=== PATIENT | male | born 1975 | race Caucasian/White ===

== ENCOUNTER 2023-07-24 16:35 | Outpatient (CLI) | payer BC, SELFPAY | END 2023-07-24 16:36 | disposition home or self-care (01) | LOC: NFLDREF 07-26 14:50 | PROVIDERS: PCP Family Medicine; Referring Provider Family Medicine; Visit Provider Dermatology | DX: Z79.631 Long term (current) use of antimetabolite agent (principal) | CPT/HCPCS: 80076 ==

== ENCOUNTER 2024-03-25 09:57 | Outpatient (CLI) | payer BC, SELFPAY ==
--- OUTSIDE RECORDS SUMMARY | 2024-03-25 10:01 | XMS_ITS | Clinical Summary ---
Author Name Unknown Organization [facility] Address [place], [place] [address] Care Team Providers Care Crew Leader Gluing Name Role Phone Oswald Mcfarland MD Primary Care Provider Allergies Active Allergy Reactions Criticality Noted Date Comments [place] Pollen Extract Anaphylaxis High 10/03/2021 Lactase Diarrhea 10/03/2021 Egg Diarrhea 10/03/2021 Gluten Diarrhea 10/03/2021 Medications Medication Sig Dispensed Refills Start Date End Date Status cetirizine (ZYRTEC) 10 mg tabletIndications:Eos inophilic gastroenteritis Take 1 Tablet (10 mg) by mouth once daily. 90 Tablet 04/08/2023 Active omeprazole (PRILOSEC) 40 mg Delayed-Release capsuleIndications:Es ophagitis Take 1 Capsule (40 mg) by mouth once daily before a meal. 90 Capsule 04/08/2023 Active valACYclovir (VALTREX) 1 gram tabletIndications:Rec urrent cold sores Take 1 Tablet (1 g) by mouth two times daily. 180 Tablet 04/08/2023 Active fluticasone (50 mcg per actuation) nasal solution (FLONASE)Indications: Eosinophilic gastroenteritis Inhale 1 [place] into affected nostril(s) two times daily. 48 g 04/08/2023 Active baclofen (LIORESAL) 10 mg tabletIndications:Mus jerardo spasm of shoulder region Take 1 Tablet (10 mg) by mouth two times daily. 60 Tablet 3 04/08/2023 Active durable medical equipment (DME)Indications:Bila teral carpal tunnel syndrome Quickfit wirst II, Stanley left and right 1 Each 10/07/2023 Active methocarbamoL (ROBAXIN) 500 mg tablet Take 500 mg by mouth. 09/23/2023 Active Cosentyx Pen 150 mg/mL pen Inject 300 mg subcutaneous every 4 weeks. 12/26/2021 Active pregabalin (LYRICA) 75 mg capsuleIndications:Ce rvical nerve root impingement,Severe back pain Take 1 Capsule (75 mg) by mouth two times daily. 60 Capsule 11/19/2023 Active Active Problems Problem Noted Date Diagnosed Date Bilateral carpal tunnel syndrome 10/07/2023 Immunosuppression 04/08/2023 Chronic pain of left knee 10/18/2021 Arthritis of left knee 10/18/2021 Biceps tendinitis of right shoulder 10/08/2021 Degenerative tear of glenoid labrum, right 10/08 Arthritis of right acromioclavicular joint 10/08 Chronic right shoulder pain 10/08/2021 Hx of cervical spine surgery 10/08/2021 Cervical nerve root impingement 10/08/2021 Psoriatic arthritis 04/06/2021 Eosinophilic gastroenteritis 04/06/2021 Displacement of intervertebr al disc, site unspecified, without myelopathy 10/29/2007 Pain in limb 10/29/2007 Lesion of ulnar nerve 10/29/2007 Weight loss Immunizations Name Administration Dates Next Due Td, Preservative Free (age >= 7 Years) 5 Tdap 02/19/2017 Family History Relation Name Status Comments Brother 1 Alive Brother 2 Alive Child Alive x3 Father (Age 60's) cancer Mother Alive Other Alive x3 step childre n Sister Alive Social History Tobacco Use Types Packs/Day Years Used Date Smoking Tobacco: Never Smokeless Tobacco: Current Chew Tobacco Cessation:Ready to Q uit: Not Asked; Counseling Given: Yes Alcohol Use Standard Drinks/Week Comments Yes 0 (1 standard drink = 0.6 oz pur e alcohol) 1 or more times per month PHQ-2 Answer Date Recorded PHQ-2 TOTAL SCORE 0 04/08/2023 Social Connections Answer Date Recorded Frequency of Communication with Friends and Fami ly Not on file 11/21/2021 Financial Resource Strain Answer Date R ecorded Difficulty of Paying Living Expenses Not on file 11/21/2021 Difficulty of Paying Living Expenses Not on file 11/21/2021 Sex and Gender Information Value Date Recorded Sex Assigned at Not on file Gender Identity Not on file Sexual Orientation Not on file Obstetrics History Last Filed Vital Signs Vital Sign Reading Time Taken Comments Blood Pressure 122/72 11/19/2023 7:40 AM AGRICULTURAL PILOT Pulse 68 11/19/2023 7:40 AM AGRICULTURAL PILOT Temperature 36.7 ??C (98 ??F) 04/08/2023 7:56 AM CDT Respiratory Rate 16 04/08/2023 7:56 AM CDT Oxygen Saturation 97% 04/08/2023 7:56 AM CDT Inhaled Oxygen Concentration - - Weight 102.6 kg (226 lb 4.8 oz) 11/19/2023 7:40 AM AGRICULTURAL PILOT Height 165.1 cm (5' 5) 11/19/2023 7:40 AM AGRICULTURAL PILOT Body Mass Index 37.66 11/19/2023 7:40 AM AGRICULTURAL PILOT Plan of Treatment Upcoming Encounters Date Type Department Care Team (Late st Contact Info) Description 04/13/2024 3:00 PM CDT Office Visit [facility] [address] [place] [id number] Sidney Quintanilla MD [address] [facility] [address] [place] [address] Health Maintenance Due Date Last Done Comments COVID-19 vaccine series (#1) 1981 Pneumococcal series for age 6-64 (1 of 2 - PCV) 1982 HIV for age 15-65 1991 Hepatitis C screening for ag e 18-79 1994 Depression screening for age 12+ 04/08/2024 04/08/20 23, 04/06/2021 Influenza for age 9-49 08/01/2024 BMI (ht and wt on same day) for age 18+ 11/19/2024 11/19/2023, 04/08/2023, 10/03/2021, Additional history exists Tetanus booster 02/19/2027 02/19/2017, 11/14/2005 Lipids for age 45-75 04/08/2028 04/08/2023, 04/06/20 21 Colonoscopy through age 75 04/12/2032 04/12/2022, Tdap Completed 02/19/2017 Medical Devices Implanted Type Area Field Hauler Device Identifier Shelf Expiration Date Model / Serial / Lot Plate Cerv Ant 25mm [place] Vision 976-125 - [id number] Implanted:Qty : 1 on 12/21/2007 at [facility] Spine Implants Right: Neck SOFAMOR DANEK 976-125# / / [id number] Screw Self Tap 4.0x14mm Fixed Ang - [id number] Implanted:Qty : 2 on 12/21/2007 at [facility] Spine Implants Right: Neck Medtronic [id number]# / / STERIL.#43 613/27DEC. 2007 Screw Spinal [id number] Self Tap Titnm [place] - [id number] Implanted:Qty : 2 on 12/21/2007 at [facility] Spine Implants Right: Neck SOFAMOR DANEK [id number]# / / [place] STERIL#[id number] 13/27DEC/2 007 Block Luis [id number] - [id number] Implanted:Qty : 1 on 12/21/2007 at [facility] Right: Neck Medtronic [id number] / / [id number] Description:exp # 08/25/2010 Procedures Procedure Name Priority Date/Time Associated Diagnosis Comments LIPID PANEL W REFLEX MEASURED LDL Routine 04/08/2023 8:57 AM CDT Well adult exam SCAN-COLONOSCOPY 04/12/2022 2:30 PM CDT from Last 3 Months or Most Recently Relevant to Health Maintenance Results * LIPID PANEL W REFLEX MEASURED LDL (04/08/2023 8:57 AM CDT) CHOLESTEROL,TOTAL 177 100 - 199 mg/dL 04/08/2023 9:52 AM CDT [facility] TRIGLYCERIDES 69 <150 mg/dL 04/08/2023 9:52 AM CDT [facility] HDL CHOLESTEROL 43 >40 mg/dL 9:52 AM CDT [facility] NON-HDL CHOLESTEROL 134 <145 mg/dl 04/08/2023 9:52 AM T [facility] CHOL/HDL RATIO 4.12 <4.50 04/08/2023 9:52 AM CDT [facility] LDL CHOLESTEROL 120 <=130 mg/dL 04/08/2023 9:52 AM CDT [facility] VLDL CHOLESTEROL 14 <=30 mg/dL 04/08/2023 9:52 AM CDT [facility] PROVIDER ORDERED STATUS RANDOM 04/08/2023 9:52 AM CDT [facility] Blood BLOOD SPECIMEN / Unknown Butterfly / Unknown 04/08/2023 8:57 AM CDT 04/08/2023 9:01 AM CDT Oswald Mcfarland MD CHEMISTRY [facility] [address] [place] [address] * SCAN-COLONOSCOPY (04/12/2022 2:30 PM CDT) Narrative Procedure Note Jose Fields MD - 04/12/2022 1:35 PM CDT [facility] [address] [place] [address], [address], [place] [address] Patient Name: Jose Beach Gender: Male Exam Date: 04/12/2022 Visit Number: [id number] Age: 46 Years Date of : 1975 Attending MD: Jose Fields MD Medical Record#:[id number] Procedure: Colonoscopy Indications: Hematochezia - Bloating Diarrhea alternating with constipation FH celiac sprue (son) Referring MD: Oswald Mcfarland MD Primary MD: Oswald Mcfarland MD Medications: Admitting Medications: Lactated Ringers Intra Procedure Medications: Patient received monitored anesthesia care. Complications: No immediate complications Procedure: An examination of the heart and lungs was performed and found to be withinacceptable limits. . The patient was therefore deemed a reasonablecandidate for endoscopy and sedation. The risks and benefits of the procedure were explained to the patient.After obtaining informed consent, the patient received monitoredanesthesia care and I passed the scope without difficulty via the rectum to the ileum. The appendiceal orificeand ic valve were identified. The scope was retroflexed during theexamination The quality of the prep was fair (Miralax/Gatorade DoublePrep). This was a complete examination throughout the entire colon. Findings: Normal examined terminal ileum. Random biopsied were obtained. Normal colonic mucosa. Medium-sized internal and external hemorrhoids with excoriation. Random biopsies were taken throughout the colon to rule out microscopiccolitis. Impression: Bleeding hemorrhoids impression comments: - Await histopathology results. - F/u in the GI clinic. Preliminary Plan: Repeat colonoscopy in 10 years If you have signs or symptoms of lower GI illness or a new diagnosis ofcolon cancer in an immediate family member, you should contact your GIprovider or your primary provider to discuss whether your next examshould be repeated sooner. Procedure: Upper GI Endoscopy Indications: Heartburn - Dysphagia - Bloating FH of celiac sprue (son) - Back on gluten since 02/19 H/o eosinophilia of esophagus (off PPI since 02/19) Provider: Jose Fields MD Referring MD: Oswald Mcfarland MD Primary MD: Oswald Mcfarland MD Medications: Admitting Medication: Lactated Ringers Intra Procedure Medications: Patient received monitored anesthesia care. Complications: No immediate complications Procedure: An examination of the heart and lungs was performed within acceptablelimits. . The patient was therefore deemed a reasonable candidate forsedation. The risks and benefits were explained to the patient, who appeared tounderstand. After obtaining informed consent, the scope was passed underdirect vision. Throughout the procedure the patient's blood pressure,pulse and oxygen saturations were monitored. The scope was introducedthrough the mouth and advanced to the third portion of duodenum. Findings: Esophagus: The z-line is 40 centimeters from the incisors. Top of the gastric foldsis 40 centimeters from the incisors. *Esophagus Comments: Several faint concentric rings and mild scallopingwere seen in the esophageal body. The gastroscope met no resistance.Biopsies were obtained from the mid and distal esophagus to r/o EoE. Mildly irregular z-line with few short tongues (1-2 cm). Biopsies wereobtained from the GEJ to r/o Grover's esophagus. A hiatal hernia was not seen. Stomach: H. Pylori biopsies taken. The diaphragm hiatus is at 40 centimeters from the incisors. *Stomach Comments: Mild erythema of antrum. No ulcers. Patent pylorus. Duodenum: *Duodenum Comment: There were few patches of flattening in D2. Villi wereseen. Multiple biopsies were obtained. Impression: Esophagitis determined by endoscopy Irregular Z line of esophagus Gastric erythema Duodenitis Impression Comments: - Await histopathology results. - F/u in the GI clinic. - Proceed with colonoscopy today. Preliminary Plan: Return to primary care provider as necessary. Follow up as previously discussed; This is documented in EndoscopyReport Pathology Results: A: DUODENUM, BIOPSY: 1. Normal duodenal mucosa 2. Negative for celiac disease and other enteropathy B: STOMACH, BIOPSY: 1. Normal gastric antral and body mucosae 2. Negative for Helicobacter C: GE JUNCTION, BIOPSY: 1. Eosinophilic esophagitis (peak count of 40/HPF) 2. Normal gastric cardia D: ESOPHAGUS, DISTAL, BIOPSY: 1. Eosinophilic esophagitis (peak count of 30/HPF) 2. Negative for columnar mucosa E: ESOPHAGUS, MID, BIOPSY: 1. Eosinophilic esophagitis (peak count of 25/HPF) 2. Negative for columnar mucosa F: ILEUM, TERMINAL, BIOPSY: 1. Normal ileal mucosa 2. Negative for active and chronic ileitis G: COLON, RANDOM, BIOPSY: 1. Normal colonic mucosa 2. Negative for microscopic, active, and chronic colitis MICROSCOPIC A: Performed B: Performed C: The histologic findings include: Intercellular edema: Absent Eosinophil microabscess: Absent Eosinophils surface layering: Absent Extracellular eosinophil granules: Present D: The histologic findings include: Intercellular edema: Absent Eosinophil microabscess: Absent Eosinophils surface layering: Absent Extracellular eosinophil granules: Absent E: The histologic findings include: Intercellular edema: Absent Eosinophil microabscess: Absent Eosinophils surface layering: Absent Extracellular eosinophil granules: Absent F: Performed G: Performed Electronically signed by: Alex Contreras MD Interpreted at [facility], [address] [place], [place] [id number] Orders Instruction(s)/Education: Instruction/Education Timeframe Assessment Barretts K22.9 Colon Cancer Prevention K64.9 Eosinophilic Esophagitis K22.9 Gastroesophageal Reflux Disease K22.9 Hemorrhoids K64.9 Hemorrhoids (External) K64.9 Hemorrhoids (Internal) K64.9 High Fiber Diet K64.9 Follow-up visit/Referral: Order Comments follow-up visit with Jose Fields MD soon Final Plan: Repeat colonoscopy in 10 years for screening. If you have signs orsymptoms of lower GI illness or a new diagnosis of colon cancer in animmediate family member, you should contact [facility] or your primary providerto discuss whether your next exam should be repeated sooner. Repeat Upper Endoscopy (EGD) in 2 months for Eosinophilic Esophagitis. We will attempt to contact you at appropriate intervals via U.S. mail. Wemay not be able to find you or contact you at that time, therefore youshould know that the responsibility for following our recommendation restswith you. If you don't hear from us at the time your procedure is due,please contact our office to schedule an appointment. If your contactinformation should change, please contact our office so that we can updateyour record. If you have not had an office visit scheduled or other arrangements madewith your provider, please contact our office. _Electronically signed by: Jose Fields MD 04/12/2022 cc: Oswald Mcfarland MD cc: Oswald Mcfarland MD Jose Fields MD OTHER from Last 3 Months or Most Recently Relevant to Health Maintenance Advance Directives * Full Code (Latest Code Status on File) Date Activated Date Inactivated Comments 05/02/2020 6:45 AM 05/02/2020 12:42 PM Question Answer Comments Code Status Discussion: Discussed * Full Code Date Activated Date Inactivated Comments 12/21/2007 2:56 PM 12/22/2007 8:28 PM * Full Code Date Activated Date Inactivated Comments 12/21/2007 5:47 AM 12/21/2007 2:56 PM Care Teams Crew Leader Gluing Relationship Specialty Start Date End Date Oswald Mcfarland MD [address] [facility] [place] [address] PCP - General Family Practice 09/19/21
--- OUTSIDE RECORDS SUMMARY | 2024-03-25 10:01 | XMS_ITS | Clinical Summary ---
Author Name Unknown Organization [facility] Address [address] [place] [address] Care Team Providers Care Chaser Tar Name Role Phone Unassigned, Provider Primary Care Provider Unava ilable Source Comments You are receiving this document as you are listed as the primary care provider,follow-up provider, or the patient has been referred to you for consultation.This is in compliance with the Medicare and[facility] Hospitalca[facility] EHR Incentive Program,which states Providers who transition their patient to another setting of careor provider of care or refers their patient to another provider of care shouldprovide summary care record for each transition of care or referral. [facility] Allergies No known active allergies Medications Medication Sig Dispensed Refills Start Date End Date Status omeprazole (PRILOSEC) 40 MG capsule Take 40 mg by mouth daily. 12/19/2021 Active COSENTYX SENSOREADY, 300 MG, 150 MG/ML SOAJIndications:Ps oriatic Arthritis,L40.50 Inject 300 mg subcutaneously every 4 weeks. Indications: Psoriasis associated with Arthritis, L40.50 2 mL 11 12/26/2021 Active Active Problems Problem Noted Date Diagnosed Date Cervical spondylosis 12/26/2021 Achilles tendinitis of right lower extremity Rotator cuff syndrome of rig ht shoulder and allied disorders 12/26/2021 Primary osteoarthritis of left knee 10/18/2021 Chronic right shoulder pain 10/08/2021 Degenerative tear of glenoid labrum, right 10/08 Hx of cervical spine surgery 10/08/2021 Psoriatic arthritis 04/06/2021 Eosinophilic gastroenteritis 04/06/2021 Displacement of intervertebral disc 10/29/2007 Encounters Date Type Department Care Team Description 03/14/2024 dimitris Reed [phone] from Last 3 Months Immunizations Name Administration Dates Next Due Tdap 02/19/2017 Social History Tobacco Use Types Packs/Day Years Used Date Smoking Tobacco: Never Smokeless Tobacco: Current Chew Alcohol Use Standard Drinks/Week Comments Not Asked 0 (1 standard drink = 0.6 oz pur e alcohol) Sex and Gender Information Value Date Recorded Sex Assigned at Not on file Gender Identity Not on file Sexual Orientation Not on file Last Filed Vital Signs Vital Sign Reading Time Taken Comments Blood Pressure 170/80 08/05/2003 7:30 PM CDT Pulse 80 08/05/2003 7:30 PM CDT Temperature 36.7 ??C (98 ??F) 08/05/2003 7:30 PM CDT Respiratory Rate - - Oxygen Saturation - - Inhaled Oxygen Concentration - - Weight - - Height - - Body Mass Index - - Plan of Treatment Health Maintenance Due Date Last Done Comments Colon Cancer Screening Plan Due 1975 Hep C Screening (Preventive Services) 1975 HIV Screening (Preventive Services) 1992 Adult Preventive Visit 1994 HepB (1) 1995 Cholesterol 2011 COVID-19 Vaccine (1 - 2022-2 4 season) 2023 Influenza (#1) 2023 Zoster/Shingles (1 of 2) 2026 DTaP/Tdap/Td (2 - Tdap) 02/19/2027 02/19/2017 HepA Aged Out No longer eligi ble based on patient's age to complete this topic Hib Aged Out No longer eligi ble based on patient's age to complete this topic IPV (Polio) Aged Out No longer eligi ble based on patient's age to complete this topic MCV4 Aged Out No longer eligi ble based on patient's age to complete this topic Pneumococcal Aged Out No longer eligi ble based on patient's age to complete this topic Care Teams Chaser Tar Relationship Specialty Start Date End Date Unassigned, Provider [address] [place] [id number] PCP - General 08/05/03
--- OUTSIDE RECORDS SUMMARY | 2024-03-25 10:01 | XMS_ITS | Referral Summary ---
Author Name Unknown Organization [facility] Address [address] [place] [address] Care Team Providers Care Stock Pitcher Name Role Phone Elsewhere, Pcp Primary Care Provider Unavailabl e Source Comments Patient records contain information from all sites at [facility]. For routine questions regarding patient records, call [phone] during business hours, M-F 8:00 AM - 5:00 PM Central Time. Record requests for emergency care only can be directed to [phone] at any time.[facility] Allergies No known active allergies Medications Medication Sig Dispensed Refills Start Date End Date Status ibuprofen (for_ADVIL,MOTRIN) 800 mg tablet Take 1 tablet by mouth 3 (three) times a day. 02/19/2017 Active STELARA 90 mg/mL injection 10/10/2017 Active gabapentin (for_NEURONTIN) 300 mg capsule Take 300 mg by mouth 2 (two) times a day. 02/19/2017 Active fluticasone (for_FLONASE) 50 mcg/actuation nasal spray Administer 2 sprays into each nostril daily for 10 days. 16 g 12/29/2017 Active valACYclovir (VALTREX) 1000 mg tablet Take 1 tablet (1,000 mg total) by mouth daily. 30 tablet 06/19/2018 Active Active Problems Problem Noted Date Diagnosed Date PreDiabetes 02/20/2017 Body Mass Index 40.0 To 44.9 Adult 12/23/2016 Overview: Body mass index (BMI) 40.0-44.9, adult Rule activated problem due to BMI 40-44 posted on 12/23 at 15:13 ELECTRONIC CALIBRATION TECHNICIAN. Fasciitis Plantar 04/13/2014 Herpes Simplex 07/20/2012 Apnea Sleep Obstructive 07/02/2011 Arthritis Psoriatic 11/03/2009 Tremor Essential 11/03/2009 Immunizations Name Administration Dates Next Due Influenza Split 11/14/2005 Td Preservative Free (TENIVAC, DECAVAC) 11/14/20 05 Tdap 02/19/2017 Social History Tobacco Use Types Packs/Day Years Used Date Smoking Tobacco: Unknown Smokeless Tobacco: Current Chew Alcohol Use Standard Drinks/Week Comments Yes 0 (1 standard drink = 0.6 oz pur e alcohol) Nutrition Answer Date Recorded Nutrition: EVOO Fat Source Unknown 01/30 Nutrition: Servings of Fruits/Vegetables per Day Not on file 01/30/2021 Dental Answer Date Recorded Dental: Regular Dentist Unknown 01/31/20 Sex and Gender Information Value Date Recorded Sex Assigned at Not on file Gender Identity Not on file Sexual Orientation Not on file Last Filed Vital Signs Vital Sign Reading Time Taken Comments Blood Pressure 132/68 12/29/2017 9:55 AM ELECTRONIC CALIBRATION TECHNICIAN Pulse 68 12/29/2017 9:55 AM ELECTRONIC CALIBRATION TECHNICIAN Temperature 37.7 ??C (99.9 ??F) 12/29/2017 9:55 AM CS T Respiratory Rate 20 12/29/2017 9:55 AM ELECTRONIC CALIBRATION TECHNICIAN Oxygen Saturation 93% 12/29/2017 9:55 AM ELECTRONIC CALIBRATION TECHNICIAN Inhaled Oxygen Concentration - - Weight 114 kg (251 lb 1.7 oz) 12/19/2017 2:40 PM ELECTRONIC CALIBRATION TECHNICIAN Height 172 cm (5' 7.72) 12/19/2017 2:40 PM ELECTRONIC CALIBRATION TECHNICIAN Body Mass Index 38.5 12/19/2017 2:40 PM ELECTRONIC CALIBRATION TECHNICIAN Plan of Treatment Not on file Procedures Procedure Name Priority Date/Time Associated Diagnosis Comments EXTI COMPREHENSIVE METABOLIC PANEL, S/P Routine 04/08/2023 8:57 AM CDT EXTI LIPID PANEL W REFLEX MEASURED LDL Routine 04/08/2023 8:57 AM CDT CHRONIC VIRAL HEPATITIS PROFILE Routine 12/26/2015 10:41 AM ELECTRONIC CALIBRATION TECHNICIAN from Last 3 Months or Most Recently Relevant to Health Maintenance Results * Chronic Hepatitis Profile (12/26/2015 10:41 AM ELECTRONIC CALIBRATION TECHNICIAN) HBs Antigen, S Negative Negative POWERCHART Comment: Test Performed by: [facility] - [address] [address] Tours Hostess: Raymond Flynn II, M.D., Ph.D. HBs Antibody, S Negative POWERCHART Comment: Patient is presumed to be not immune to infection with HBV. REFERENCE VALUE Unvaccinated: Negative Vaccinated: Positive HX Hep Bs Ab [facility] <5.0 MIUML POWERCHART Comment: REFERENCE VALUE Unvaccinated: <5.0 Vaccinated: >=12.0 HBc Total Ab, S Negative Negative POWERCHART HXHCV Ab [facility] Negative Negative POWERCHART Comment: Xruyhz-mr-hiadmx ratio is <1.00. Test Performed by: [facility] - [address] [address] Tours Hostess: Raymond Flynn II, M.D., Ph.D. Blood 12/26/2015 10:4 1 AM ELECTRONIC CALIBRATION TECHNICIAN Vik Rueda M.D. LAB MICROBIOLOGY - BLOOD ORDERABLES POWERCHART from Last 3 Months or Most Recently Relevant to Health Maintenance Care Teams Stock Pitcher Relationship Specialty Start Date End Date Elsewhere, Pcp PCP - General 02/28/21
--- OUTSIDE RECORDS SUMMARY | 2024-03-25 10:01 | XMS_ITS | Clinical Summary ---
Author Name Unknown Organization [facility] Address [address] [place] [address] Care Team Providers Care Curator Of Photography And Prints Name Role Phone Elsewhere, Pcp Primary Care Provider Unavailabl e Source Comments Patient records contain information from all sites at [facility]. For routine questions regarding patient records, call [phone] during business hours, M-F 8:00 AM - 5:00 PM Central Time. Record requests for emergency care only can be directed to [phone] at any time.[facility] Allergies No known active allergies Medications [...] BMI 40-44 posted on 12/23 at 15:13 TELEPHONE ENGINEER. Fasciitis Plantar 04/13/2014 Herpes Simplex 07/20/2012 Apnea [...] Date Recorded Dental: Regular Dentist Unknown 01/31/20 21 Sex and Gender Information Value Date Recorded Sex Assigned at Not on file Gender Identity Not on file Sexual Orientation Not on file Last Filed Vital Signs Vital Sign Reading Time Taken Comments Blood Pressure 132/68 12/29/2017 9:55 AM TELEPHONE ENGINEER Pulse 68 12/29/2017 9:55 AM TELEPHONE ENGINEER Temperature 37.7 ??C (99.9 ??F) 12/29/2017 9:55 AM CS T Respiratory Rate 20 12/29/2017 9:55 AM TELEPHONE ENGINEER Oxygen Saturation 93% 12/29/2017 9:55 AM TELEPHONE ENGINEER Inhaled Oxygen Concentration - - Weight 114 kg (251 lb 1.7 oz) 12/19/2017 2:40 PM TELEPHONE ENGINEER Height 172 cm (5' 7.72) 12/19/2017 2:40 PM TELEPHONE ENGINEER Body Mass Index 38.5 12/19/2017 2:40 PM TELEPHONE ENGINEER Plan of Treatment Health Maintenance Due Date Last Done Comments CT Colonography 1976 Cologuard 1976 FIT 1976 COVID-19 Vaccine (#1) 1981 Pneumococcal vaccine (0-64 years) (1 of 2 - PCV) 1982 Hepatitis B Vaccines (1 of 3 - 19+ 3-dose series) 1995 Influenza Vaccine (#1) 2023 11/14/2005 Depression Screening (Annual PHQ-2) 12/01/2023 Fasting Glucose for Diabetes Screening 04/08/2024 04/08/2023, 04/06/2021, 12/29/2017, Additional history exists DTaP,Tdap,and Td Vaccines (2 - Td or Tdap) 02/19/2027 02/19/2017, 11/14/2005 Lipid (Cholesterol) Screening 04/08/2028 04/08/2023, 04/06/2021, 02/19/2017, Additional history exists Colonoscopy 04/12/2032 04/12/2022 Colorectal Cancer Screening 04/12/2032 HIV Screening Completed 05/03/2008 Hepatitis C Screening Completed 12/26/2015 HPV Vaccines Aged Out No longer eligi ble based on patient's age to complete this topic Procedures Procedure Name Priority Date/Time Associated Diagnosis Comments EXTI COMPREHENSIVE METABOLIC PANEL, S/P Routine 04/08/2023 8:57 AM CDT EXTI LIPID PANEL W REFLEX MEASURED LDL Routine 04/08/2023 8:57 AM CDT CHRONIC VIRAL HEPATITIS PROFILE Routine 12/26/2015 10:41 AM TELEPHONE ENGINEER from Last 3 Months or Most Recently Relevant to Health Maintenance Results * Chronic Hepatitis Profile (12/26/2015 10:41 AM TELEPHONE ENGINEER) HBs Antigen, S Negative Negative POWERCHART Comment: Test Performed by: [place] [address] First Coat Operator: Raymond Flynn II, M.D., Ph.D. HBs Antibody, S Negative POWERCHART Comment: Patient is presumed to be not immune to infection with HBV. REFERENCE VALUE Unvaccinated: Negative Vaccinated: Positive HX Hep Bs Ab [facility] <5.0 MIUML POWERCHART Comment: REFERENCE VALUE Unvaccinated: <5.0 Vaccinated: >=12.0 HBc Total Ab, S Negative Negative POWERCHART HXHCV Ab [facility] Negative Negative POWERCHART Comment: Kfyaro-hl-fnwmyh ratio is <1.00. Test Performed by: [address] [address] First Coat Operator: Raymond Flynn II, M.D., Ph.D. Blood 12/26/2015 10:4 1 AM TELEPHONE ENGINEER Vik Rueda M.D. LAB MICROBIOLOGY - BLOOD ORDERABLES POWERCHART from Last 3 Months or Most Recently Relevant to Health Maintenance Care Teams Curator Of Photography And Prints Relationship Specialty Start Date End Date Elsewhere, Pcp PCP - General 02/28/21
--- OUTSIDE RECORDS SUMMARY | 2024-03-25 10:01 | XMS_ITS | Encounter Summary ---
Author Name Unknown Organization [facility] Address [address] [place] [address] Care Team Providers Care Earth Mover Name Role Phone Unassigned, Provider Primary Care Provider Unava ilable Encounter Details Date Type Department Care Team (Late st Contact Info) Description 03/14/2024 patricia Reed [phone] Social History Tobacco Use Types Packs/Day Years Used Date Smoking Tobacco: Never Smokeless Tobacco: Current Chew Alcohol Use Standard Drinks/Week Comments Not Asked 0 (1 standard drink = 0.6 oz pur e alcohol) Sex and Gender Information Value Date Recorded Sex Assigned at Not on file Gender Identity Not on file Sexual Orientation Not on file documented as of this encounter Progress Notes * PATRICIA LANGLEY PROVIDER - 03/14/2024 8:27 AM CDT Patricia Treatment Plan Diagnosis Sinusitis Visit Date March 14, 2024 [place] Date of : 77 Provider Dorothy Christiansen Nurse Practitioner Note From Provider Nilay Garcia! I?? sorry to hear that you are not feeling well. I??e sent a prescription for an antibiotic to your pharmacy. To help relieve your symptoms while your antibiotics start to work, I recommendtaking 800 mg of ibuprofen every 8 hours around the clock for the next 3 days. I also recommend taking over the counter Mucinex and drinking extra fluids to promote drainage. Please read through the treatment plan I??e put together for you below for additional instructions. If you have any questions or concerns, please submit a Follow Up Request at any time. Feel better soon! JUVE De La Cruz Treatment Plan Since you have a bacterial infection, let's try an antibiotic. I sent a prescription to [facility]. I??e prescribed high dose amoxicillin, which the latest evidence recommends as the best and safest antibiotic to clear up your bacterial infection faster. I??e also listed a few self-care tips to soothe your symptoms while the antibiotic kills the bacteria. If your symptoms don't improve after 4 days, or if you have questions, select Help to Request a Follow-up and we'll adjust your treatment for free. Order(s) amoxicillin 500 mg capsule Take 2 capsule by mouth three times a day as directed for 7 days Note: Refills: None Sent To: [facility] [address] [place], [place] [id number] Treatment Plan Self Care Tip Topics Inflammation Relief with Ibuprofen Avoid Decongestants and Antihistamines Relieve Facial Pressure with Nasal Steroids How to Take Your Nasal Steroid Warm Packs Steam Therapy Irrigate Your Sinuses What to Expect Our goal is to treat the infection and to reduce the inflammation of your sinus tissues to promote drainage. This will make you feel better quickly. If you follow the recommendations I made on the Treatment tab, your symptoms should begin to improve in 4 days of following this treatment plan. If your symptoms haven?? improved after 4 days, select Help to Request a Follow-up and we??l discuss nextsteps. What to Watch Out For Give us a call immediately if you experience: ??? Vision changes ??? Redness and swelling of the eyes or face ??? Increasing congestion ??? Worsening pain ??? High fevers My Conditions, Orders, Allergies as of March 14, 2024 Standard condition list None Current orders amoxicillin (amoxicillin) Allergies None [employer] Information [place] [facility] We are an online clinic open 23/06. If you have any questions or comments about this visit, please call or email [email or web address]. documented in this encounter Plan of Treatment Not on file documented as of this encounter Visit Diagnoses Diagnosis Acute sinusitis, unspecified documented in this encounter Care Teams Earth Mover Relationship Specialty Start Date End Date Unassigned, Provider [address] [place] [id number] PCP - General 08/05/03 documented as of this encounter
--- OUTSIDE RECORDS SUMMARY | 2024-03-25 10:01 | XMS_ITS ---
Author Name Unknown Organization [facility] Address [address] [place] [address] Care Team Providers Care Venereal Disease Control Head Name Role Phone Unavailable Unavailable Unavailable Surgery Details Not on file Complications Check Surgery Details section. Procedure Estimated Blood Loss Check Surgery Details section. Procedure Findings Check Surgery Details section. Procedure Specimens Taken Check Surgery Details section.
== END 2024-03-25 09:58 | disposition home or self-care (01) ==
PROVIDERS: PCP Family Medicine; Visit Provider Dermatology
DX: L40.50 Arthropathic psoriasis, unspecified (principal); Z79.899 Other long term (current) drug therapy
CPT/HCPCS: 80048; 80076; 86480